=== PATIENT | male | born 1965 | race Caucasian/White ===

== ENCOUNTER 2022-09-22 18:23 | Emergency (ER) | payer OTHER ==
[~2022-09-22] VITALS: Ht 170.2 cm; Wt 79.4 kg
[2022-09-22] MEDS ORDERED: ACETAMINOPHEN ES 500 MG TABLET ONE (19:56)
[2022-09-22] MEDS ORDERED: ACETAMINOPHEN ES 500 MG TABLET PO ONE (20:00)
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
--- NOTE | 2022-09-22 20:25 | NUR ---
PT BEING TRANSPORTED TO CT
--- NOTE | 2022-09-22 22:42 | NUR ---
Patient discharged to home in stable condition. Written and verbal after care instructions given. Patient verbalizes understanding of instruction.
[2022-09-22 22:43] VITALS: BP 139/73
== END 2022-09-22 22:43 | disposition home or self-care (01) ==
LOC: ER 18:29
DX: S00.83XA Contusion of other part of head, initial encounter (principal); M25.572 Pain in left ankle and joints of left foot; Z88.2 Allergy status to sulfonamides; Z88.8 Allergy status to other drugs, medicaments and biological substances; V49.9XXA Car occupant (driver) (passenger) injured in unspecified traffic accident, initial encounter; Y93.89 Activity, other specified; Y92.89 Other specified places as the place of occurrence of the external cause; Y99.8 Other external cause status
CPT/HCPCS: 70450-TC; 73610-TC; 73630-TC